=== PATIENT | female | born 1975 | race Asian ===

== ENCOUNTER 2019-04-18 22:02 | Emergency (ER) | payer OTHER ==
[~2019-04-18] VITALS: Ht 165.1 cm; Wt 88.5 kg
[~2019-04-18 22:02] MED LIST: CEPH-443 PO; HYDR-4011 PO; MUPI22OI2 TOP; PREG25CA PO; SULF1TAB31 PO
[2019-04-18 22:06] VITALS: BP 163/94; PULSE 94; RESP 20; Ht 165.1 cm; Wt 88.5 kg
[2019-04-18] MEDS ORDERED: KETOROLAC 15 MG INJ IM STA (22:41)
== END 2019-04-18 23:53 | disposition home or self-care (01) ==
LOC: FTE 22:02
DX: E13.49 Other specified diabetes mellitus with other diabetic neurological complication (principal); I10 Essential (primary) hypertension; Z86.73 Personal history of transient ischemic attack (TIA), and cerebral infarction without residual deficits
CPT/HCPCS: 82962; 96372; J1885; Z7502